=== PATIENT | female | born 1970 | race African-American/Black ===

== ENCOUNTER 2023-08-09 16:50 | Emergency (ER) | payer SELFPAY ==
[~2023-08-09] VITALS: Ht 172.7 cm; Wt 68.0 kg
[2023-08-09 16:52] VITALS: BP 117/73; PULSE 106; TEMP 98.3; O2SAT 98
[2023-08-09] MEDS ORDERED: FAMOTIDINE 20MG/2ML VIAL IV STA (17:01)
[2023-08-09] MEDS ORDERED: ONDANSETRON HCL 4MG/2ML INJ IV STA (17:01)
[2023-08-09] MEDS ORDERED: SODIUM CHLORIDE 0.9% 1,000 ML IV ONE (17:15)
[2023-08-09] MEDS ORDERED: FAMOTIDINE 20MG TABLET PO NR (23:45)
[2023-08-09] MEDS ORDERED: ONDANSETRON HCL 4MG TABLET PO NR (23:45)
[2023-08-09] MEDS ORDERED: MAGNESIUM/ALUMINUM HYDROXIDE/SIMETHICONE 30ML UDC PO STA (23:50)
[2023-08-09 23:53] LABS: BASOPHILS % 0.2 % (0.0-2.0); HEMATOCRIT. 39.4 % (36.0-48.0); HEMOGLOBIN. 12.8 g/dL (12.0-16.0); LYMPHOCYTES % 11.2 % (20.0-50.0); MEAN CORPUSCULAR HGB CONC 32.5 g/dL (31.0-37.0); MEAN CORPUSCULAR VOLUME 86.4 fL (81.0-99.0); MEAN PLATELET VOLUME 9.8 fl (7.4-10.4); MONOCYTES % 13.1 % (2.0-8.0); NEUTROPHILS % 75.5 % (40.0-76.0); PLATELET 185 x1000/uL (130-400); RED BLOOD CELL COUNT 4.56 mill/uL (4.2-5.4); RED CELL DISTRIBUTION WIDTH 13.7 % (11.6-14.6); WHITE BLOOD COUNT 5.6 x1000/uL (4.5-11.0)
[2023-08-10] MEDS ORDERED: FAMOTIDINE 20MG TABLET PO ONE
[2023-08-10 00:09] LABS: ALANINE AMINOTRANSFERASE 24 IU/L (10-49); ALBUMIN 4.1 g/dL (3.2-4.8); ASPARTATE AMINOTRANSFERASE 36 IU/L (<34); BILIRUBIN TOTAL 0.5 mg/dL (0.1-1.0); CALCIUM 9.2 mg/dL (8.7-10.4); CARBON DIOXIDE 25 mEq/L (21-32); CHLORIDE 103 mEq/L (98-107); CREATININE 1.2 mg/dL (0.6-1.0); GLUCOSE 77 mg/dL (70-105); PROTEIN TOTAL 7.1 g/dL (6.0-8.3); SODIUM 138 mEq/L (136-145); UREA NITROGEN BLOOD 21 mg/dL (9-23)
[2023-08-10 00:20] LABS: ETHANOL BLOOD < 10 mg/dL (<10)
== END 2023-08-10 02:49 | disposition home or self-care (01) ==
LOC: ER 16:50
DX: K52.9 Noninfective gastroenteritis and colitis, unspecified (principal); R10.84 Generalized abdominal pain; D64.9 Anemia, unspecified; I10 Essential (primary) hypertension; F14.10 Cocaine abuse, uncomplicated
CPT/HCPCS: 80053; 80320; 83690; 85025; 36415; 74176; 99284; Q0162; J7030; Z7610; G0480